=== PATIENT | female | born 1975 | race Caucasian/White ===

== ENCOUNTER 2023-08-22 13:31 | Emergency (ER) | payer OTHER, SELFPAY ==
[2023-08-22 13:37] VITALS: BP 167/85; PULSE 82; RESP 18; TEMP 36; O2SAT 98; BMI 36.0
--- NOTE | 2023-08-22 13:43 | ED.GENADULT ---
HPI - General Adult General Time Seen by Provider: 13:43 Date Seen: 08/22/23 Chief complaint: Flank Pain Stated complaint: Kidney uniwlj-[id number] urine output Time Seen by Provider: 08/22/23 13:43 Source: patient and RN notes reviewed Mode of arrival: ambulatory Limitations: no limitations History of Present Illness HPI narrative: This patient is a 47-year-old female ambulatory into the ER with concern of an obstructive kidney stone. She believes she may have passed a couple kidney stones this week, cannot tell me really how she is sure that this happen. She is felt warm and cold at times but no documented fever. She has had nausea and recent vomiting. She has not really had much to eat but has been taking fluids in. She has had right flank pain in notes that it is moving at times. She has had a previous laparoscopy for endometriosis. She has never been diagnosed with kidney stones before but talking to her father and a, believes that she may have kidney stones. She has really had minimal urine output today. Prior to that she has denied any hematuria or dysuria. She denies any underlying diarrhea or bowel issues. Related Data Home Medications Medication Instructions Recorded Confirmed HCTZ 08/22/23 losartan 100 mg tablet (Cozaar) 100 mg PO DAILY 08/22/23 08/22/23 metformin 08/22/23 metoprolol tartrate 75 mg tablet 37.5 mg PO BID 08/22/23 08/22/23 rosuvastatin 08/22/23 Previous Rx's Medication Instructions Recorded ketorolac 10 mg tablet 10 mg PO Q6H PRN pain #20 tabs 08/22/23 ondansetron 4 mg disintegrating 4 mg PO Q6H PRN nausea and 08/22/23 tablet vomiting #20 tabs tamsulosin 0.4 mg capsule (Flomax) 0.4 mg PO DAILY #10 caps 08/22/23 Allergies Allergy/AdvReac Type Severity Reaction Status Date / Time No Known Drug Allergies Allergy Verified 08/22/23 13:42 Review of Systems Status of ROS: Reports: 6 or more systems reviewed and unremarkable except as noted in History and below [facility] Medical History (Updated 08/22/23 @ 16:36 by Jackie Heaton MD) Endometriosis determined by laparoscopy ?N80.9 - Endometriosis, unspecified (ICD-10) Exam Const: Vital Signs, click to edit/add: Vital Signs - 24 hr 08/22/23 13:37 08/22/23 16:53 Temperature 96.8 F L Pulse Rate [Right Pulse Oximeter] 82 99 Respiratory Rate 18 18 Blood Pressure [Ri ght Upper Arm] 167/85 H 129/80 Pulse Oximetry 98 Oxygen Delivery Me thod Room Air 47-year-old female is alert, interactive, no apparent distress, carries bucket in with her presumably for feeling nauseated. She is very pleasant however, alert and interactive. Sclera clear, conjugate gaze coming able speak in complete sentences. Neck is supple, no masses or adenopathy. Lungs are clear, good air entry, no wheezing or crackles. CV regular rate and rhythm, no murmur, normal S1-S2, no S3-S4. Abdomen currently is soft, bowel sounds faintly present, abdomen is not distended, no significant tenderness or rebound. No CVA tenderness noted. Skin visualized without rash, certainly does not appear jaundice. She was ambulatory into the ED of her own accord. Documenting provider has reviewed patient's vital signs: yes Course Course ED Course: This is a 47-year-old female that is coming in with right flank to abdominal pain with benign abdominal examination. She is self reported to think that this is kidney stones, she certainly may be correct. We will place an IV, get full complement of labs. Will treat her nausea and pain with 4 mg IV Zofran and 15 mg IV Toradol respectively. Will give her L of IV fluids. Will attempt to collect urinalysis when able. Will proceed with CT abdomen pelvis noncontrast. Will certainly consider other etiologies based on labs and CT outcome. Reevaluation(s) Time of Reevaluation #1: 16:05 Reevaluation #1: Patient's pain is gone, she feels good. She did leave a urinalysis, have not seen the results yet. We did review her CT, she has a 6 mm obstructing stone in the distal right ureter, did review that this may not pass on its own. I have no urology referral for her, I do not feel she needs hospitalization at this point. She has pain free with just the Toradol. Will plan on setting her up with outpatient meds and she will follow up with her primary care provider which is in [place], she is just up here visiting her dad whom had to go into a intermediate. We discussed use of Flomax to help dilate the system, will also center was Zofran for any nausea. She needs to drink adequate fluids. We also reviewed the incidental finding of a 4.1 cm left ovarian cyst, will need outpatient pelvic ultrasound. She can get this scheduled through her primary provider. Once urinalysis is back, if felt safe to discharge, will have her discharged to home with further outpatient management. Vital Signs Vital signs: Initial Vital Signs Temperature 96.8 F L 08/22/23 13:37 Temperature Source Temporal Artery Scan 08/22/23 13:37 Pulse Rate 82 08/22/23 13:37 Respiratory Rate 18 08/22/23 13:37 Blood Pressure 167/85 H 08/22/23 13:37 Blood Pressure Mean 112 H 08/22/23 13:37 Blood Pressure Position Sitting 08/22/23 13:37 Pulse Oximetry 98 08/22/23 13:37 Oxygen Delivery Method Room Air 08/22/23 13:37 Vital Signs Temperature 96.8 F L 08/22/23 13:37 Pulse Rate 82 08/22/23 13:37 Respiratory Rate 18 08/22/23 13:37 Blood Pressure 167/85 H 08/22/23 13:37 Pulse Oximetry 98 08/22/23 13:37 Oxygen Delivery Method Room Air 08/22/23 13:37 Temperature 96.8 F L 08/22/23 13:37 Pulse Rate 99 08/22/23 16:53 Respiratory Rate 18 08/22/23 16:53 Blood Pressure 129/80 08/22/23 16:53 Pulse Oximetry 98 08/22/23 13:37 Oxygen Delivery Method Room Air 08/22/23 13:37 Medications Administered Medications: Discontinued Medications Generic Name Dose Route Start Last Admin Trade Name Freq PRN Reason Stop Dose Admin Sodium Chloride 1,000 mls @ 500 mls/hr 08/22/23 13:50 08/22/23 15:52 0.9 % Sodium Chloride 1000 Ml IV 08/22/23 15:49 Infused .Q2H ANDREW Infusion Ketorolac Tromethamine 15 mg 08/22/23 13:50 08/22/23 14:28 Ketorolac 15 Mg/Ml Inj IVP 08/22/23 13:51 15 mg ONCE ONE Administration Ondansetron HCl 4 mg 08/22/23 13:50 08/22/23 14:29 Ondansetron 2 Mg/Ml Inj IVP 08/22/23 13:51 4 mg ONCE ONE Administration Medical Decision Making Lab Data Lab results reviewed: Yes I reviewed the patient's lab results Labs: Lab Results 08/22/23 08/22/23 Range/Units 14:25 15:47 WBC 11.60 H (4.50-11.00) K/uL RBC 4.41 (4.00-5.20) m/uL Hgb 14.0 (12.0-16.0) gm/dL Hct 41.0 (33.0-51.0) % MCV 93 (80-100) fL MCH 32 (26-34) pg MCHC 34 (32-36) gm/dL RDW Coeff of Leighton 12.4 (11.5-15.5) % Plt Count 237 (140-440) K/uL Neut % (Auto) 87.4 H (42.0-72.0) % Lymph % (Auto) 9.1 L (20-44) % Price % (Auto) 2.8 (0.0-11.0) % Eos % (Auto) 0.2 (0.0-7.0) % Baso % (Auto) 0.3 (0.0-3.0) % Neut # (Auto) 10.10 H (1.7-7.0) K/uL Lymph # (Auto) 1.10 (0.90-2.90) K/uL Price # (Auto) 0.30 (0.00-0.90) K/UL Eos # (Auto) 0.00 (0.00-0.50) K/uL Baso # (Auto) 0.00 (0.00-0.30) K/uL Abs Immat Gran (auto) 0.00 (0.00-0.30) K/uL Imm/Tot Granulo (auto) 0.2 % Sodium 134 L (135-149) mmol/L Potassium 3.9 (3.6-5.1) mmol/L Chloride 98 (96-114) mmol/L Carbon Dioxide 22 (20-32) mmol/L Anion Gap 14 (7-15) mEq/L BUN 14 (5-24) mg/dL Creatinine 0.7 (0.5-1.5) mg/dL Estimated Creat Clear 84.87 Estimated GFR 107 ml/min Glucose 167 H (60-115) mg/dL Lactate 2.9 H (0.5-1.9) mmol/L Calcium 9.9 (8.4-10.6) mg/dL Total Bilirubin 0.7 (0.1-1.5) mg/dL AST 41 H (12-35) U/L ALT 36 H (4-35) U/L Alkaline Phosphatase 48 (40-150) U/L C-Reactive Protein < 0.5 L (0.5-1.0) mg/dL Total Protein 7.9 (6.0-8.3) g/dL Albumin 4.8 (3.3-5.0) g/dL Lipase 70 (23-300) U/L Urine Color Yellow (Yellow) Urine Appearance Cloudy A (Clear) Urine pH 5.5 (5.0-8.5) Ur Specific [place] >= 1.030 (1.000-1.030) Urine Protein Trace A (Negative) Urine Glucose (UA) Negative (Negative) Urine Ketones 1+ A (Negative) Urine Blood 2+ A (Negative) Urine Nitrite Negative (Negative) Urine Bilirubin Negative (Negative) Urine Urobilinogen 0.2 (0.2-1.0) Ur Leukocyte Esterase Negative (Negative) Urine RBC 0-2 (0-2) Urine WBC 0-2 (0-5) Ur Squamous Epith Cells Few (None-Few) Urine Bacteria Few A (None) Imaging Data CT scan - abdomen: Attestation: I have reviewed the pertinent imaging results. Radiologist's impression: Patient: KIMBERLI RATLIFF SONTAG Facility:?[facility] Patient ID:?[id number] Site Patient ID:?[id number]. Site :?[id number] Study:?CT Abdomen/Pelvis STONE STUDY-08/22/2023 2:47:42 PM Ordering Physician:?DR. BURRELL Final Report: INDICATION: Flank pain. Evaluate for kidney stone. TECHNIQUE: Multiplanar CT examination of the abdomen and pelvis was performed without the use of intravenous contrast, renal stone protocol. COMPARISON: None. FINDINGS: Limited evaluation of the soft tissue organs without the use of intravenous contrast. Lower chest: No focal consolidation. Normal heart size. No pleural effusions or pneumothorax. Liver: Steatosis. Gallbladder: Unremarkable. Biliary: Unremarkable. Pancreas: Within normal limits. Spleen: Unremarkable. Adrenal glands: Unremarkable. Renal/ureters/bladder: The right kidney is edematous, with moderate hydroureteronephrosis to the level of the distal right ureter where there is an obstructing 6 mm urinary calculus (2:117). There are punctate nonobstructive calculi within the collecting system of the right kidney as well. The left kidney is normal in size without obstructive uropathy or urolithiasis. Limited evaluation for renal masses without the use of intravenous contrast. The ureters appear unremarkable. The bladder is within normal limits. Pelvis: Simple appearing left ovarian cyst measuring up to 4.1 cm, incompletely characterized on this nondedicated noncontrast examination. Gastrointestinal: No bowel wall thickening or bowel obstruction. Appendectomy. Trace colonic diverticulosis without pericolonic fat stranding to suggest acute diverticulitis. Mild colonic stool burden. Vasculature: No aortic aneurysm. Mild atherosclerotic calcifications. Lymph nodes: No pathologic lymphadenopathy by size criteria. Peritoneum: No free fluid or pneumoperitoneum. No drainable fluid collections. Abdominal wall/soft tissues: Unremarkable. Bones: No acute osseous abnormalities. Mild degenerative changes of the thoracolumbar spine with mild compression deformity, age indeterminate T11. IMPRESSION: 1. Moderate right-sided hydroureteronephrosis to the level of the distal ureter where there is an obstructing 6 mm urinary calculus. 2. Incompletely characterized 4.1 cm simple appearing left ovarian cyst. Further evaluation may be considered with a pelvic ultrasound for improved characterization in a nonemergent, outpatient setting. Please note that all CT scans at this facility use dose modulation, iterative reconstruction, and/or weight-based dosing when appropriate to reduce radiation dose to as low as reasonably achievable. Dictated by Javi Henson MD @ 08/22/2023 3:46:09 PM (Electronic Signature) Critical Care Time Critical Care Time Critical Care Time: No Discharge Plan Discharge Clinical Impression: Obstruction of right ureter, Renal colic on right side, Cyst of left ovary Patient Disposition: Home, Self-Care Condition: Stable Instructions: Ovarian Cyst (ED), Kidney Stones (ED), Renal Colic (ED) Additional Instructions: Start the Flomax intake daily until the stone has passed or as otherwise advised by Urology or your primary provider. Use the Toradol for pain management, can supplement with Tylenol 1000 mg up to 3 times a day if needed for extra pain control. Zofran per prescription for nausea. You need to get a follow-up scheduled with your primary clinic as soon as possible, would recommend urology referral as there is a chance that this stone may not pass on its own and may need urology intervention. Likewise, your primary provider does need to get you scheduled for a pelvic ultrasound to further characterize and follow the incidental finding on the CT of the left ovarian cyst. If at any point your pain is uncontrolled with outlined measures, you develop fever with a retained obstructing kidney stone or have vomiting that is uncontrolled despite Zofran, do need to be emergently re-evaluated. If you develop a fever and increasing abdominal pain in the setting of an obstructing kidney stone, this becomes a urologic emergency to have the stone intervened on. Activity Level: Activity as Tolerated Prescriptions: New tamsulosin [Flomax] 0.4 mg capsule 0.4 mg PO DAILY Qty: 10 0RF ondansetron 4 mg tablet,disintegrating 4 mg PO Q6H PRN (Reason: nausea and vomiting) Qty: 20 0RF ketorolac 10 mg tablet 10 mg PO Q6H PRN (Reason: pain) Qty: 20 0RF Rx Instructions: maximum total duration of 5 days from all oral, intranasal, or parenteral formulations No Action losartan [Cozaar] 100 mg tablet 100 mg PO DAILY metoprolol tartrate 75 mg tablet 37.5 mg PO BID HCTZ metformin rosuvastatin Follow Up/Referrals: Provider,Not a Local [Primary Care Provider] - Stand Alone Forms: [facility] Info Instructions
--- NOTE | 2023-08-22 13:50 | CT_ITS ---
Patient: KIMBERLI RATLIFF SONTAG Facility:?[facility] Patient ID:?[id number] Site Patient ID:?[id number]. Site :?[id number] Study:?CT-Abdomen/Pelvis STONE STUDY-08/22/2023 2:47:42 PM Ordering Physician:?DR. BURRELL Final Report: INDICATION: Flank pain. Evaluate for kidney stone. TECHNIQUE: Multiplanar CT examination of the abdomen and pelvis was performed without the use of intravenous contrast, renal stone protocol. COMPARISON: None. FINDINGS: Limited evaluation of the soft tissue organs without the use of intravenous contrast. Lower chest: No focal consolidation. Normal heart size. No pleural effusions or pneumothorax. Liver: Steatosis. Gallbladder: Unremarkable. Biliary: Unremarkable. Pancreas: Within normal limits. Spleen: Unremarkable. Adrenal glands: Unremarkable. Renal/ureters/bladder: The right kidney is edematous, with moderate hydroureteronephrosis to the level of the distal right ureter where there is an obstructing 6 mm urinary calculus (2:117). There are punctate nonobstructive calculi within the collecting system of the right kidney as well. The left kidney is normal in size without obstructive uropathy or urolithiasis. Limited evaluation for renal masses without the use of intravenous contrast. The ureters appear unremarkable. The bladder is within normal limits. Pelvis: Simple appearing left ovarian cyst measuring up to 4.1 cm, incompletely characterized on this nondedicated noncontrast examination. Gastrointestinal: No bowel wall thickening or bowel obstruction. Appendectomy. Trace colonic diverticulosis without pericolonic fat stranding to suggest acute diverticulitis. Mild colonic stool burden. Vasculature: No aortic aneurysm. Mild atherosclerotic calcifications. Lymph nodes: No pathologic lymphadenopathy by size criteria. Peritoneum: No free fluid or pneumoperitoneum. No drainable fluid collections. Abdominal wall/soft tissues: Unremarkable. Bones: No acute osseous abnormalities. Mild degenerative changes of the thoracolumbar spine with mild compression deformity, age indeterminate T11. IMPRESSION: 1. Moderate right-sided hydroureteronephrosis to the level of the distal ureter where there is an obstructing 6 mm urinary calculus. 2. Incompletely characterized 4.1 cm simple appearing left ovarian cyst. Further evaluation may be considered with a pelvic ultrasound for improved characterization in a nonemergent, outpatient setting. Please note that all CT scans at this facility use dose modulation, iterative reconstruction, and/or weight-based dosing when appropriate to reduce radiation dose to as low as reasonably achievable. Dictated by Javi Henson MD @ 08/22/2023 3:46:09 PM Signed by:?Javi Henson MD @08/22/2023 3:46:09 PM (Electronic Signature)
[2023-08-22] MEDS: KETOROLAC 15 MG/ML inj IVP (14:28)
[2023-08-22 14:29] LABS: Lactate* 2.9 mmol/L (0.5-1.9)
[2023-08-22] MEDS: ONDANSETRON 2 MG/ML inj 4 MG IVP (14:29)
[2023-08-22 14:33] LABS: Basophils Percent Auto 0.3 % (0.0-3.0); Eosinophils Percent Auto 0.2 % (0.0-7.0); Immature Granulocytes Pct Auto 0.2 %; Lymphocytes Percent Auto 9.1 % (20-44); Mean Corpuscular HGB Conc 34 gm/dL (32-36); Mean Corpuscular Hemoglobin 32 pg (26-34); Mean Corpuscular Volume 93 fL (80-100); Monocytes Percent Auto 2.8 % (0.0-11.0); Neutrophils Percent Auto 87.4 % (42.0-72.0); Platelet Count* 237 K/uL (140-440); RDW Coefficient of Variation % 12.4 % (11.5-15.5); Red Blood Count 4.41 m/uL (4.00-5.20)
[2023-08-22 14:38] LABS: Slide Review Reflex No
[2023-08-22] MEDS: 0.9 % SODIUM CHLORIDE 1000 ml 1,000 ML IV (14:38)
[2023-08-22 14:47] LABS: Albumin* 4.8 g/dL (3.3-5.0); Chloride* 98 mmol/L (96-114)
[2023-08-22 14:48] LABS: Potassium* 3.9 mmol/L (3.6-5.1); Sodium* 134 mmol/L (135-149)
[2023-08-22 14:50] LABS: Alkaline Phosphatase* 48 U/L (40-150); Anion Gap 14 mEq/L (7-15); Aspartate Amino Transferase* 41 U/L (12-35); Bilirubin Total* 0.7 mg/dL (0.1-1.5); Blood Urea Nitrogen* 14 mg/dL (5-24); Carbon Dioxide* 22 mmol/L (20-32); Creatinine* 0.7 mg/dL (0.5-1.5); Est. Creatinine Clearance* 84.87; Estimated Glomerular Filt Rate 107 ml/min; Lipase* 70 U/L (23-300); Total Protein* 7.9 g/dL (6.0-8.3)
[2023-08-22 14:51] LABS: Alanine Aminotransferase* 36 U/L (4-35); Calcium* 9.9 mg/dL (8.4-10.6); Glucose* 167 mg/dL (60-115)
[2023-08-22 14:55] LABS: C Reactive Protein* < 0.5 mg/dL (0.5-1.0)
[2023-08-22 16:01] LABS: Appearance Urine Cloudy (Clear); Bilirubin Urine Negative (Negative); Blood Urine 2+ (Negative); Color Urine Yellow (Yellow); Glucose Urine Negative (Negative); Ketones Urine 1+ (Negative); Leukocyte Esterase Urine Negative (Negative); Nitrite Urine Negative (Negative); Protein Urine Trace (Negative); Specific Gravity Urine >= 1.030 (1.000-1.030); Urobilinogen Urine 0.2 (0.2-1.0); pH Urine 5.5 (5.0-8.5)
[2023-08-22 16:53] VITALS: BP 129/80; PULSE 99; RESP 18
[2023-08-22 16:56] LABS: Bacteria Urine Few; RBC Urine 0-2 (0-2); Squamous Epithelial Cell Urine Few (None-Few); WBC Urine 0-2 (0-5)
== END 2023-08-22 16:54 | disposition home or self-care (01) ==
PROVIDERS: Emergency Provider Family Medicine
DX: N83.202 Unspecified ovarian cyst, left side (principal); N13.5 Crossing vessel and stricture of ureter without hydronephrosis
CPT/HCPCS: 36415; 74176; 80053; 81001; 83605; 83690; 85025; 86140; 87086; 96374; 96375; 99284; J1885; J2405; J7030